=== PATIENT | male | born 1985 ===

== ENCOUNTER 2020-12-20 16:25 | Emergency (ER) | payer OTHER ==
[2020-12-20] MEDS ORDERED: MORPHINE SULFATE 4 MG/ML SYRINGE IM STA (16:59)
--- NOTE | 2020-12-20 17:50 | ED ---
Lower Extremity Injury HPI - General Chief Complaint: Extremity Injury, Lower Stated Complaint: Knee Pain Time Seen by Provider: 12/20/20 16:53 Source: patient, RN notes reviewed Mode of arrival: ambulatory Limitations: no limitations - History of Present Illness Initial Comments: Patient is a 35-year-old male that presents to the emergency department c omplaining of right knee pain. He notes that in November he squatted down to get something out of the bottom covered felt a pop in a searing pain in his right knee. He notes that he did follow-up with orthopedics who thinks that he may rupture his quadriceps tendon and have a torn meniscus. He notes that he just recently got an MRI done but is not following up with orthopedics until the . He was told by his primary care to come the emergency room for pain control. Patient noted that pain is constantly at like a 6-7 out of 10 but once a while gets a throbbing sharp pain that is a 10 out of 10. Patient denied any other issues or complaints at this time. She denied any chest pain short of breath headache nausea vomiting diarrhea constipation fever fatigue chills. - Related Data Previous Rx's Medication Instructions Recorded HYDROcodone/APAP 7.5-325MG [[place] 1 tab PO Q6HR PRN #20 tab 12/20/20 7.5-325] Allergies Allergy/AdvReac Type Severity Reaction Status Date / Time No Known Allergies Allergy Verified 12/20/20 16:50 Review of Systems ROS Statement: Those systems with pertinent positive or pertinent negative responses have been documented in the HPI. ROS Other: All systems not noted in ROS Statement are negative. Past Medical History Past Medical History: No Reported History History of Any Multi-Drug Resistant Organisms: None Reported Additional Past Surgical History / Comment(s): cyst removal Past Psychological History: No Psychological Hx Reported Smoking Status: Never smoker Past Alcohol Use History: Occasional, Rare Past Drug Use History: None Reported General Exam Limitations: no limitations General appearance: alert, in no apparent distress Head exam: Present: atraumatic, normocephalic, normal inspection Eye exam: Present: normal appearance, PERRL, EOMI. Absent: scleral icterus, conjunctival injection, periorbital swelling Neck exam: Present: normal inspection Respiratory exam: Present: normal lung sounds bilaterally. Absent: respiratory distress, wheezes, rales, rhonchi, stridor Cardiovascular Exam: Present: regular rate, normal rhythm, normal heart sounds. Absent: systolic murmur, diastolic murmur, rubs, gallop, clicks Right Knee exam: Present: tenderness (Medial aspect), swelling (Minimal), ecchymosis (The medial aspect). Absent: normal inspection, full ROM (Secondary to pain), abrasion, laceration, deformity, crepitus, dislocation, erythema Neurological exam: Present: alert, oriented X3 Psychiatric exam: Present: normal affect, normal mood Skin exam: Present: warm, dry, intact, normal color. Absent: rash Medical Decision Making - Medical Decision Making 35-year-old male complaining of right knee pain since November, did follow-up with orthopedics but pain is not controlled well. X-ray of the right knee, 4 mg of morphine ordered. X-ray negative for any acute fractures dislocations. Pain medication sent to pharmacy. Case discussed with Dr. Bose, patient can discharge home with follow-up to orthopedics as planned. - Radiology Data Radiology results: report reviewed, image reviewed X-ray of the right knee: No displaced fracture dislocation identified. Prepatellar soft tissue swelling. Disposition Clinical Impression: Right knee pain Disposition: HOME SELF-CARE Condition: Stable Instructions (If sedation given, give patient instructions): Knee Pain (ED) Additional Instructions: Please return to the Emergency Department if symptoms worsen or any other concerns. Follow-up with primary care in 1-2 days, possibly get referral for pain man agement. Remain nonweightbearing on that leg. Take pain medication as prescribed. Prescriptions: HYDROcodone/APAP 7.5-325MG [[place] 7.5-325] 1 tab PO Q6HR PRN #20 tab PRN Reason: Pain Is patient prescribed a controlled substance at d/c from ED?: Yes When asked, does pt state using other controlled substances?: No If prescribed controlled substance>3 days was MAPS reviewed?: No If opioid is for acute pain is fill amount 7 days or less?: Yes If Rx opioid, was Start Talking consent form obtained?: Yes Referrals: Renetta Blanco DO [Primary Care Provider] - 1-2 days Time of Disposition: 18:58
--- NOTE | 2020-12-20 18:56 | XR ---
EXAM: XR Right Knee, 1 or 2 Views CLINICAL HISTORY: ITS.REASON XR Reason: pain TECHNIQUE: Frontal and/or lateral views of the right knee. COMPARISON: None FINDINGS: Bones/joints: No displaced fracture or dislocation identified. Joint space is maintained. No bony lesion. Small knee joint effusion. Soft tissues: Prepatellar soft tissue swelling. IMPRESSION: 1. No displaced fracture or dislocation identified. 2. Prepatellar soft tissue swelling.
[2020-12-20 19:12] VITALS: BP 110/63; PULSE 65; RESP 16; TEMP 97.9
== END 2020-12-20 19:11 | disposition home or self-care (01) ==
LOC: EC 16:25
DX: S80.01XA Contusion of right knee, initial encounter (principal); X50.0XXA Overexertion from strenuous movement or load, initial encounter
CPT/HCPCS: 99283; 96372; 73560; J2270

== ENCOUNTER 2020-12-24 11:33 | Inpatient (IN) | payer OTHER ==
[2020-12-24] MEDS ORDERED: LIDOCAINE 1% INJ 10MG/ML (20 ML MDV) SQ ONE (12:48)
[2020-12-24] MEDS ORDERED: HYDROmorphone 1 MG/ML 1 ML SYRINGE IVP STA (12:49)
--- NOTE | 2020-12-24 12:52 | ED ---
General Adult HPI - General Chief complaint: Extremity Injury, Lower Stated complaint: knee pain Time Seen by Provider: 12/24/20 12:15 Source: patient, RN notes reviewed Mode of arrival: ambulatory Limitations: no limitations - History of Present Illness Initial comments: Patient is a pleasant 35-year-old male presenting to the emergency Department with complaints of right knee discomfort. A frank did injure his knee around 6 weeks ago. Over the past few days symptoms have worsened. Patient has had some increased swelling, warmth and redness. Patient did have a fever 3 days ago. Patient has been taking Lortab however has not noticed fever since that time. No upper respiratory symptoms. No cough or dyspnea. No abdominal pain. No urinary symptoms. Discomfort greatly increases with movement. - Related Data Previous Rx's Medication Instructions Recorded HYDROcodone/APAP 7.5-325MG [[place] 1 tab PO Q6HR PRN #20 tab 12/20/20 7.5-325] Allergies Allergy/AdvReac Type Severity Reaction Status Date / Time No Known Allergies Allergy Verified 12/24/20 13:29 Review of Systems ROS Statement: Those systems with pertinent positive or pertinent negative responses have been documented in the HPI. ROS Other: All systems not noted in ROS Statement are negative. Constitutional: Reports: as per HPI, fever Eyes: Denies: eye pain ENT: Denies: ear pain Respiratory: Denies: cough Cardiovascular: Denies: chest pain Endocrine: Denies: fatigue Gastrointestinal: Denies: abdominal pain Genitourinary: Denies: dysuria Musculoskeletal: Reports: as per HPI, arthralgia. Denies: back pain Skin: Reports: as per HPI Past Medical History Past Medical History: No Reported History History of Any Multi-Drug Resistant Organisms: None Reported Past Surgical History: Orthopedic Surgery Additional Past Surgical History / Comment(s): cyst removal Past Psychological History: No Psychological Hx Reported Smoking Status: Never smoker Past Alcohol Use History: Occasional, Rare Past Drug Use History: None Reported General Exam Limitations: no limitations General appearance: alert, in no apparent distress Head exam: Present: atraumatic Eye exam: Present: normal appearance Neck exam: Present: normal inspection Respiratory exam: Present: normal lung sounds bilaterally Cardiovascular Exam: Present: regular rate, normal rhythm Expanded Peripheral pulses: 2+: Dorsalis Pedis (R) GI/Abdominal exam: Present: soft. Absent: tenderness Extremities exam: Present: joint swelling (Moderate patellar effusion on the right. Severe tenderness. Trace erythema.). Absent: full ROM (Discomfort limiting range of motion) Neurological exam: Present: alert Psychiatric exam: Present: normal affect, normal mood Skin exam: Present: other (Mild erythema right knee) Course Vital Signs 12/24/20 12/24/20 12:09 13:47 Temperature 98.3 F 100.1 F H Pulse Rate 123 H Respiratory 18 Rate Blood Pressure 126/73 O2 Sat by Pulse 99 Oximetry Medical Decision Making - Medical Decision Making Patient reevaluated and updated. Case was discussed with Evelyne Bryant who did come evaluate patient and discuss case with Dr. Garrett. She will perform aspiration and started antibiotics. She does on patient to be admitted. Case was also discussed with Dr. Cristina, who will admit covering Dr. Draper. Patient does not meet sepsis criteria at this time. - Lab Data Result diagrams: 12/24/20 13:29 12/24/20 13:29 Lab Results 12/24/20 12/24/20 12/24/20 Range/Units 13:29 13:29 13:29 WBC 7.0 (3.8-10.6) k/uL RBC 5.17 (4.30-5.90) m/uL Hgb 16.6 (13.0-17.5) gm/dL Hct 48.2 (39.0-53.0) % MCV 93.1 (80.0-100.0) fL MCH 32.1 (25.0-35.0) pg MCHC 34.5 (31.0-37.0) g/dL RDW 13.1 (11.5-15.5) % Plt Count 350 (150-450) k/uL MPV 7.7 Neutrophils % 68 % Lymphocytes % 23 % Monocytes % 6 % Eosinophils % 1 % Basophils % 1 % Neutrophils # 4.7 (1.3-7.7) k/uL Lymphocytes # 1.6 (1.0-4.8) k/uL Monocytes # 0.4 (0-1.0) k/uL Eosinophils # 0.1 (0-0.7) k/uL Basophils # 0.0 (0-0.2) k/uL PT 10.1 (9.0-12.0) sec INR 0.9 (<1.2) APTT 24.7 (22.0-30.0) sec Sodium 138 (137-145) mmol/L Potassium 4.6 (3.5-5.1) mmol/L Chloride 104 (98-107) mmol/L Carbon Dioxide 24 (22-30) mmol/L Anion Gap 10 mmol/L BUN 16 (9-20) mg/dL Creatinine 0.89 (0.66-1.25) mg/dL Est GFR (CKD-EPI)AfAm >90 (>60 ml/min/1.73 sqM) Est GFR (CKD-EPI)NonAf >90 (>60 ml/min/1.73 sqM) Glucose 104 H (74-99) mg/dL Plasma Lactic Acid Dario (0.7-2.0) mmol/L Calcium 9.5 (8.4-10.2) mg/dL Total Bilirubin 0.5 (0.2-1.3) mg/dL AST 32 (17-59) U/L ALT 40 (4-49) U/L Alkaline Phosphatase 61 (38-126) U/L Total Protein 8.2 (6.3-8.2) g/dL Albumin 4.7 (3.5-5.0) g/dL 12/24/20 Range/Units 13:29 WBC (3.8-10.6) k/uL RBC (4.30-5.90) m/uL Hgb (13.0-17.5) gm/dL Hct (39.0-53.0) % MCV (80.0-100.0) fL MCH (25.0-35.0) pg MCHC (31.0-37.0) g/dL RDW (11.5-15.5) % Plt Count (150-450) k/uL MPV Neutrophils % % Lymphocytes % % Monocytes % % Eosinophils % % Basophils % % Neutrophils # (1.3-7.7) k/uL Lymphocytes # (1.0-4.8) k/uL Monocytes # (0-1.0) k/uL Eosinophils # (0-0.7) k/uL Basophils # (0-0.2) k/uL PT (9.0-12.0) sec INR (<1.2) APTT (22.0-30.0) sec Sodium (137-145) mmol/L Potassium (3.5-5.1) mmol/L Chloride (98-107) mmol/L Carbon Dioxide (22-30) mmol/L Anion Gap mmol/L BUN (9-20) mg/dL Creatinine (0.66-1.25) mg/dL Est GFR (CKD-EPI)AfAm (>60 ml/min/1.73 sqM) Est GFR (CKD-EPI)NonAf (>60 ml/min/1.73 sqM) Glucose (74-99) mg/dL Plasma Lactic Acid Dario 1.6 (0.7-2.0) mmol/L Calcium (8.4-10.2) mg/dL Total Bilirubin (0.2-1.3) mg/dL AST (17-59) U/L ALT (4-49) U/L Alkaline Phosphatase (38-126) U/L Total Protein (6.3-8.2) g/dL Albumin (3.5-5.0) g/dL - Radiology Data Radiology results: image reviewed (X-ray concerning for prepatellar bursitis) Disposition Clinical Impression: Other infective bursitis, unspecified knee Disposition: ADMITTED IP TO THIS HOSP Is patient prescribed a controlled substance at d/c from ED?: No Referrals: Renetta Blanco DO [Primary Care Provider] - 1-2 days Decision Time: 14:39
--- NOTE | 2020-12-24 13:20 | XR ---
EXAMINATION TYPE: XR knee complete RT DATE OF EXAM: 12/24/2020 CLINICAL HISTORY: Pain and swelling TECHNIQUE: Three views of the right knee are obtained. COMPARISON: Right knee x-ray from 4 days ago. FINDINGS: There is no acute fracture/dislocation evident in right knee. Mild narrowing patellofemora l and medial tibiofemoral compartments redemonstrated without significant spurring. Persistent and sl ightly more prominent subcutaneous edema anteriorly distal femoral level extending over the patella. IMPRESSION: As above. Correlate for prepatellar superficial bursitis.
[2020-12-24] MEDS: SODIUM CHLORIDE 0.9% 1,000 ML IV SCH ×2 (13:39→20:40)
[2020-12-24 13:45] LABS: Basophils % (A) 1 %; Eosinophils # (A) 0.1 k/uL (0-0.7); Eosinophils % (A) 1 %; HCT 48.2 % (39.0-53.0); HGB 16.6 gm/dL (13.0-17.5); Lymphocytes # (A) 1.6 k/uL (1.0-4.8); Lymphocytes % (A) 23 %; MCH 32.1 pg (25.0-35.0); MCHC 34.5 g/dL (31.0-37.0); MCV 93.1 fL (80.0-100.0); Mean Platelet Volume 7.7; Monocytes # (A) 0.4 k/uL (0-1.0); Monocytes % (A) 6 %; Neutrophils # (A) 4.7 k/uL (1.3-7.7); Neutrophils % (A) 68 %; Platelet Count 350 k/uL (150-450); RBC 5.17 m/uL (4.30-5.90); RDW 13.1 % (11.5-15.5)
[2020-12-24 13:57] LABS: ALT 40 U/L (4-49); AST 32 U/L (17-59); African American GFR (CKD) >90 (>60 ml/min/1.73 sqM); Albumin 4.7 g/dL (3.5-5.0); Alkaline Phosphatase 61 U/L (38-126); Anion Gap 10 mmol/L; Blood Urea Nitrogen 16 mg/dL (9-20); Calcium 9.5 mg/dL (8.4-10.2); Carbon Dioxide 24 mmol/L (22-30); Chloride 104 mmol/L (98-107); Glucose 104 mg/dL (74-99); INR 0.9 (<1.2); Non-African American GFR(CKD) >90 (>60 ml/min/1.73 sqM); Partial Thromboplastin Time 24.7 sec (22.0-30.0); Potassium 4.6 mmol/L (3.5-5.1); Prothrombin Time 10.1 sec (9.0-12.0); Sodium 138 mmol/L (137-145); Total Bilirubin 0.5 mg/dL (0.2-1.3); Total Protein 8.2 g/dL (6.3-8.2)
[2020-12-24] MEDS ORDERED: ACETAMINOPHEN TAB 325 MG TAB PO PRN (14:40)
[2020-12-24] MEDS ORDERED: NALOXONE 0.4 MG/ML 1 ML VIAL IV PRN (14:40)
--- NOTE | 2020-12-24 16:46 | P.CNOR ---
History of Present Illness - [facility] Consult date: 12/24/20 Consult reason: joint pain (Septic prepatellar bursitis right knee.) History of present illness: This is a 35-year-old male who has been followed in our office for right knee pain. He states that his pain began in November when he squatted down and felt a pop in the front of his knee. He ended up having an MRI which revealed a possibly sprained MCL. I do not have the report available to me at this time for further details. He states that he began having some redness and swelling to the anterior aspect of his knee over the past couple of weeks which is progressively gotten worse. He has been running a fever for the last couple of days. He states the fever has been over 101 at times. He presented to the emergency department and we are consulted for orthopedic evaluation. He is currently being admitted to internal medicine with orthopedics on consult. Past Medical History Past Medical History: No Reported History History of Any Multi-Drug Resistant Organisms: None Reported Past Surgical History: Orthopedic Surgery Additional Past Surgical History / Comment(s): cyst removal Past Psychological History: No Psychological Hx Reported Smoking Status: Never smoker Past Alcohol Use History: Occasional, Rare Past Drug Use History: None Reported Medications and Allergies Home Medications Medication Instructions Recorded Confirmed Type HYDROcodone/APAP 7.5-325MG [[place] 1 tab PO Q6HR PRN #20 tab 12/20/20 12/24/20 Rx 7.5-325] Allergies Allergy/AdvReac Type Severity Reaction Status Date / Time No Known Allergies Allergy Verified 12/24/20 13:29 Physical Examination This is a pleasant 35-year-old male in no acute distress. He is alert and oriented 3. Exam of the right lower extremity reveals erythema and swelling to the anterior aspect of the knee in the region of the prepatellar bursa. There is more of a diffuse swelling as opposed to a large area of fluctuance. There is no obvious joint effusion noted on exam. He has pain with motion of the knee. He can straight leg raise with pain. No Pain with palpation. He has full foot and ankle motion without difficulty. Neurovascular status to the lower extremity is intact. Results Right knee x-rays taken today reveal no acute bony abnormality. No fracture noted. No arthritic changes noted. - Labs Labs: Abnormal Lab Results - Last 24 Hours (Table) 12/24/20 Range/Units 13:29 Glucose 104 H (74-99) mg/dL H & H 12/24/20 Range/Units 13:29 Hgb 16.6 (13.0-17.5) gm/dL Hct 48.2 (39.0-53.0) % Coagulation 12/24/20 Range/Units 13:29 INR 0.9 (<1.2) Result Diagrams: 12/24/20 13:29 12/24/20 13:29 Assessment and Plan (1) Septic prepatellar bursitis of right knee Current Visit: Yes Status: Acute Code(s): M71.161 - OTHER INFECTIVE BURSITIS, RIGHT KNEE SNOMED Code(s): [id number] Plan: The clinical and x-ray findings are discussed with the patient. Aspiration of the bursa is attempted today. I obtained only a small amount of blood. The fluid is sent to the lab for culture and sensitivity. He is admitted to Dr. Blanco. He is admitted for IV antibiotics. I recommend moist heat to the knee as well. I will reevaluate in the morning. We have discussed the possibility of surgical debridement if symptoms do not improve with antibiotics. I would like him to have at least 24 hours of IV antibiotics prior to making a surgical determination. I will start him on vancomycin today with pharmacy to dose. I will also had moist heat.
[2020-12-24] MEDS ORDERED: VANCOMYCIN IV PER PHARMACY 1 EACH MISC MISCELLANE SCH (17:00)
[2020-12-24] MEDS: VANCOMYCIN 1,500 MG in SODIUM CHLORIDE 0.9% 250 ML IVPB SCH ×2 (18:35→23:10)
--- NOTE | 2020-12-24 18:44 | P.HPIM ---
History of Present Illness H&P Date: 12/24/20 Chief Complaint: Knee pain and swelling 35-year-old male presenting to the emergency Department with complaints of right knee discomfort. A frank did injure his knee around 6 weeks ago. Over the past few days symptoms have worsened. Patient has had some increased swelling, warmth and redness. Patient did have a fever 3 days ago. Patient has been taking Lortab however has not noticed fever since that time. No upper respiratory symptoms. No cough or dyspnea. No abdominal pain. No urinary symptoms. Discomfort greatly increases with movement. Review of Systems REVIEW OF SYSTEMS: CONSTITUTIONAL: No fever, no malaise, no fatigue. HEENT: No recent visual problems or hearing problems. Denied any sore throat. CARDIOVASCULAR: No chest pain, orthopnea, PND, no palpitations, no syncope. PULMONARY: No shortness of breath, no cough, no hemoptysis. GASTROINTESTINAL: No diarrhea, no nausea, no vomiting, no abdominal pain. NEUROLOGICAL: No headaches, no weakness, no numbness. HEMATOLOGICAL: Denies any bleeding or petechiae. GENITOURINARY: Denies any burning micturition, frequency, or urgency. MUSCULOSKELETAL/RHEUMATOLOGICAL: Denies any joint pain, swelling, or any muscle pain. ENDOCRINE: Denies any polyuria or polydipsia. The rest of the 14-point review of systems is negative. Past Medical History Past Medical History: No Reported History History of Any Multi-Drug Resistant Organisms: None Reported Past Surgical History: Orthopedic Surgery Additional Past Surgical History / Comment(s): cyst removal Past Psychological History: No Psychological Hx Reported Smoking Status: Never smoker Past Alcohol Use History: Occasional, Rare Past Drug Use History: None Reported Medications and Allergies Home Medications Medication Instructions Recorded Confirmed Type HYDROcodone/APAP 7.5-325MG [[place] 1 tab PO Q6HR PRN #20 tab 12/20/20 12/24/20 Rx 7.5-325] Allergies Allergy/AdvReac Type Severity Reaction Status Date / Time No Known Allergies Allergy Verified 12/24/20 13:29 Physical Exam Vitals: Vital Signs Temp Pulse Resp BP Pulse Ox 12/24/20 13:47 100.1 F H 12/24/20 12:09 98.3 F 123 H 18 126/73 99 Intake and Output 08/19/21 08/20/21 08/20/21 22:59 06:59 14:59 Other: Weight 81.647 kg General appearance: alert, in no apparent distress Head exam: Present: atraumatic Eye exam: Present: normal appearance Neck exam: Present: normal inspection Respiratory exam: Present: normal lung sounds bilaterally Cardiovascular Exam: Present: regular rate, normal rhythm Expanded Peripheral pulses: 2+: Dorsalis Pedis (R) GI/Abdominal exam: Present: soft. Absent: tenderness Extremities exam: Present: joint swelling (Moderate patellar effusion on the right. Severe tenderness. Trace erythema.). Absent: full ROM (Discomfort limiting range of motion) Neurological exam: Present: alert Psychiatric exam: Present: normal affect, normal mood Skin exam: Present: other (Mild erythema right knee) Results CBC & Chem 7: 12/24/20 13:29 12/24/20 13:29 Labs: Abnormal Lab Results - Last 24 Hours (Table) 12/24/20 Range/Units 13:29 Glucose 104 H (74-99) mg/dL Assessment and Plan Assessment: 1. Septic right knee prepatellar bursitis - Orthopedic surgery consulted from ED and recommending aspiration followed by starting broad-spectrum IV antibiotics, vancomycin with pharmacy dosing service - Fluid to be sent for culture and sensitivity - Patient is recommended moist heat to the knee - Patient will need surgical debridement if symptoms don't improve with IV antibiotics 2. Fever/tachycardia/lactic acidosis; SIRS; we will continue to monitor markers DVT prophylaxis; SCDs CODE STATUS; full code
[2020-12-24] MEDS: HYDROmorphone 1 MG/ML 1 ML SYRINGE IVP PRN (20:38)
[2020-12-25] MEDS: SODIUM CHLORIDE 0.9% 1,000 ML IV SCH ×3 (04:07→22:13)
[2020-12-25] MEDS: VANCOMYCIN 1,500 MG in SODIUM CHLORIDE 0.9% 250 ML IVPB SCH ×2 (07:40→16:37)
[2020-12-25] MEDS: HYDROmorphone 1 MG/ML 1 ML SYRINGE IVP PRN ×4 (07:41→19:46)
--- NOTE | 2020-12-25 10:17 | P.PN ---
Subjective Progress Note Date: 12/25/20 Principal diagnosis: Prepatellar bursitis right knee with cellulitis. This is a 35-year-old male who has been followed in our office for right knee pain. He states that his pain began in November when he squatted down and felt a pop in the front of his knee. He ended up having an MRI which revealed a possibly sprained MCL. I do not have the report available to me at this time fo r further details. He states that he began having some redness and swelling to the anterior aspect of his knee over the past couple of weeks which is progressively gotten worse. He has been running a fever for the last couple of days. He states the fever has been over 101 at times. He presented to the emergency department and we are consulted for orthopedic evaluation. He is currently being admitted to internal medicine with orthopedics on consult. 12/25/2020: The patient has some improvement in his pain and redness today. He is able to flex [id number] more. He has been afebrile since admission. He has no new complaints or concerns today. Gram stain and culture are pending. Objective - Vital Signs Vital signs: Vital Signs Temp 98.1 F 12/25/20 08:00 Pulse 75 12/25/20 08:00 Resp 16 12/25/20 08:00 BP 101/65 12/25/20 08:00 Pulse Ox 99 12/25/20 08:00 Intake & Output 12/24/20 12/25/20 12/25/20 18:59 06:59 18:59 Intake Total 1350 Balance 1350 Weight 81.647 kg 81.647 kg Intake: Intake, IV Titration 1110 Amount Sodium Chloride 0.9% 1, 860 000 ml @ 130 mls/hr IV . Q7H42M SUZANNA Rx#:[id number] Vancomycin 1,500 mg In 250 Sodium Chloride 0.9% 250 ml @ 125 mls/hr IVPB Q8HR SUZANNA Rx#:[id number] Oral 240 Other: Voiding Method Toilet Toilet # Voids 1 - Exam This is a pleasant 35-year-old male in no acute distress. He is alert and oriented 3. Exam of the right knee reveals that he has less erythema today slightly improved soft tissue swelling to the anterior aspect of the knee. He continues to have some tenderness and increased warmth to the knee. Improved range of motion today. He has active straight leg raise without difficulty. Neurovascular status to the lower extremity is intact. - Labs CBC & Chem 7: 12/24/20 13:29 12/24/20 13:29 Labs: Abnormal Lab Results - Last 24 Hours (Table) 12/24/20 Range/Units 13:29 Glucose 104 H (74-99) mg/dL Microbiology - Last 24 Hours (Table) 12/24/20 16:25 Gram Stain - Preliminary Aspirate Body Fluid Culture - Preliminary Assessment and Plan (1) Septic prepatellar bursitis of right knee Current Visit: Yes Status: Acute Code(s): M71.161 - OTHER INFECTIVE BURSITIS, RIGHT KNEE SNOMED Code(s): 0231502914338242 Plan: The clinical and x-ray findings are discussed with the patient. He is to continue on the IV antibiotics and moist heat to the right knee. We will continue to follow his progress. If he continues to improve we will hopefully avoid surgical intervention.
[2020-12-25 11:59] LABS: Basophils # (A) 0.04 X 10*3/uL (0.00-0.10); Basophils % (A) 0.6 %; Eosinophils # (A) 0.15 X 10*3/uL (0.04-0.35); Eosinophils % (A) 2.1 %; HCT 45.2 % (39.6-50.0); HGB 14.9 g/dL (13.0-17.0); Lymphocytes # (A) 1.67 X 10*3/uL (0.90-5.00); Lymphocytes % (A) 23.6 %; MCH 30.7 pg (27.0-32.0); MCV 93.2 fL (80.0-97.0); Mean Platelet Volume 9.9 fL (9.5-12.2); Monocytes # (A) 0.55 X 10*3/uL (0.20-1.00); Monocytes % (A) 7.8 %; Neutrophils # (A) 4.63 X 10*3/uL (1.80-7.70); Neutrophils % (A) 65.5 %; Platelet Count 333 X 10*3/uL (140-440); RBC 4.85 X 10*6/uL (4.40-5.60); RDW 12.6 % (11.5-14.5); WBC 7.07 X 10*3/uL (4.50-10.00)
[2020-12-25] MEDS: traMADol 50 MG TAB PO PRN (12:04)
--- NOTE | 2020-12-25 19:01 | P.PN ---
Subjective Progress Note Date: 12/25/20 Principal diagnosis: Prepatellar bursitis right knee Significant cellulitis right knee 35-year-old male who has been followed in our office for right knee pain. He states that his pain began in November when he squatted down and felt a pop in the front of his knee. He ended up having an MRI which revealed a possibly sprained MCL. I do not have the report available to me at this time for further details. He states that he began having some redness and swelling to the anterior aspect of his knee over the past couple of weeks which is progressively gotten worse. He has been running a fever for the last couple of days. He states the fever has been over 101 at times. He presented to the emergency department and we are consulted for orthopedic evaluation. Objective - Vital Signs Vital signs: Vital Signs Temp 98.1 F 12/25/20 08:00 Pulse 75 12/25/20 08:00 Resp 16 12/25/20 08:00 BP 101/65 12/25/20 08:00 Pulse Ox 99 12/25/20 08:00 Intake & Output 12/24/20 12/25/20 12/25/20 18:59 06:59 18:59 Intake Total 1350 Balance 1350 Weight 81.647 kg 81.647 kg Intake: Intake, IV Titration 1110 Amount Sodium Chloride 0.9% 1, 860 000 ml @ 130 mls/hr IV . Q7H42M SUZANNA Rx#:[id number] Vancomycin 1,500 mg In 250 Sodium Chloride 0.9% 250 ml @ 125 mls/hr IVPB Q8HR SUZANNA Rx#:[id number] Oral 240 Other: Voiding Method Toilet Toilet # Voids 1 - Exam - Constitutional General appearance: Present: average body habitus, cooperative, no acute distress - EENT Eyes: Present: anicteric sclerae, EOMI, PERRLA, normal appearance ENT: Present: hearing grossly normal, normal oropharynx Ears: bilateral: normal - Neck Neck: Present: normal ROM. Absent: lymphadenopathy, rigidity, thyromegaly Carotids: negative: bruit present Thyroid: bilateral: normal size, negative: enlarged, nodule - Respiratory Respiratory: bilateral: CTA, negative: rales, rhonchi, wheezing - Cardiovascular Rhythm: regular Heart sounds: normal: S1, S2 Abnormal Heart Sounds: Absent: systolic murmur, diastolic murmur - Gastrointestinal General gastrointestinal: Present: normal bowel sounds, soft. Absent: distended, organomegaly, tenderness - Genitourinary Genitourinary Comment(s): deferred - Integumentary Integumentary: Present: normal turgor. Absent: jaundiced, rash, ulcer - Neurologic Neurologic: Present: CNII-XII intact. Absent: focal deficits - Musculoskeletal Musculoskeletal: Present: gait normal, strength equal bilaterally - Psychiatric Psychiatric: Present: A&O x's 3, appropriate affect, intact judgment & insight - Labs CBC & Chem 7: 12/25/20 08:37 12/24/20 13:29 Labs: Abnormal Lab Results - Last 24 Hours (Table) 12/24/20 Range/Units 13:29 Glucose 104 H (74-99) mg/dL Microbiology - Last 24 Hours (Table) 12/24/20 16:25 Gram Stain - Preliminary Aspirate Body Fluid Culture - Preliminary Assessment and Plan Assessment: 1. Septic right knee prepatellar bursitis - Orthopedic surgery consulted from ED and recommending aspiration followed by starting broad-spectrum IV antibiotics, vancomycin with pharmacy dosing service - Fluid to be sent for culture and sensitivity - Patient is recommended moist heat to the knee - Patient will need surgical debridement if symptoms don't improve with IV antibiotics 2. Fever/tachycardia/lactic acidosis; SIRS; we will continue to monitor markers DVT prophylaxis; SCDs CODE STATUS; full code
[2020-12-25] MEDS ORDERED: ONDANSETRON 4 MG/2 ML VIAL IVP PRN (21:40)
[2020-12-26] MEDS: VANCOMYCIN 1,500 MG in SODIUM CHLORIDE 0.9% 250 ML IVPB SCH ×2 (01:53→07:42)
[2020-12-26] MEDS: SODIUM CHLORIDE 0.9% 1,000 ML IV SCH ×3 (01:55→22:22)
[2020-12-26] MEDS ORDERED: VANCOMYCIN TROUGH DUE 1 EACH MISC MISCELLANE ONE (07:00)
[2020-12-26 07:33] LABS: African American GFR (CKD) >90 (>60 ml/min/1.73 sqM); Non-African American GFR(CKD) >90 (>60 ml/min/1.73 sqM)
[2020-12-26] MEDS: HYDROmorphone 1 MG/ML 1 ML SYRINGE IVP PRN ×4 (07:41→22:12)
[2020-12-26 11:00] LABS: Basophils # (A) 0.02 X 10*3/uL (0.00-0.10); Basophils % (A) 0.3 %; Eosinophils % (A) 1.3 %; HCT 44.6 % (39.6-50.0); HGB 14.6 g/dL (13.0-17.0); Lymphocytes % (A) 25.7 %; MCH 30.8 pg (27.0-32.0); MCHC 32.7 g/dL (32.0-37.0); MCV 94.1 fL (80.0-97.0); Mean Platelet Volume 9.8 fL (9.5-12.2); Monocytes # (A) 0.63 X 10*3/uL (0.20-1.00); Monocytes % (A) 8.1 %; Neutrophils # (A) 4.99 X 10*3/uL (1.80-7.70); Neutrophils % (A) 64.2 %; Platelet Count 325 X 10*3/uL (140-440); RBC 4.74 X 10*6/uL (4.40-5.60); RDW 12.6 % (11.5-14.5); WBC 7.77 X 10*3/uL (4.50-10.00)
[2020-12-26] MEDS ORDERED: LIDOCAINE 1% INJ 10MG/ML (20 ML MDV) ONE (17:25)
[2020-12-26] MEDS ORDERED: PROPOFOL 10 MG/ML 20 ML VIAL IV ONE (17:25)
[2020-12-26] MEDS ORDERED: HYDROmorphone (PF) 1 MG/ML ONE (17:25)
[2020-12-26] MEDS ORDERED: MIDAZOLAM 2 MG/2 ML VIAL ONE (17:25)
[2020-12-26] MEDS ORDERED: ONDANSETRON 4 MG/2 ML VIAL ONE (17:25)
[2020-12-26] MEDS ORDERED: LACTATED RINGERS 1,000 ML IV ONE (17:30)
[2020-12-26] MEDS ORDERED: AMPICILLIN-SULBACTAM 3 GM in SODIUM CHLORIDE 0.9% 100 ML IVPB SCH (18:00)
--- NOTE | 2020-12-26 18:02 | P.PN ---
Subjective Progress Note Date: 12/26/20 Principal diagnosis: Prepatellar bursitis right knee Significant cellulitis right knee 35-year-old male who has been followed in our office for right knee pain. He states that his pain began in November when he squatted down and felt a pop in the front of his knee. He ended up having an MRI which revealed a possibly sprained MCL. I do not have the report available to me at this time for further details. He states that he began having some redness and swelling to the anterior aspect of his knee over the past couple of weeks which is progressively gotten worse. He has been running a fever for the last couple of days. He states the fever has been over 101 at times. He presented to the emergency department and we are consulted for orthopedic evaluation. 12/26/2020 Patient is seen and evaluated in room at bedside; continues to report discomfort and swelling of right knee Vital signs are reviewed; temperature 98.9, pulse 86, respirations 16 and blood pressure 114/68 with O2 saturation 100% on room air Labs review stable white blood count of 7.7; cultures are negative so far Patient has been evaluated by orthopedic surgery; plan is possible incision and drainage of right knee in no more; patient is currently on IV vancomycin; recommended to be changed to IV Unasyn; further recommendations to follow Objective - Vital Signs Vital signs: Vital Signs Temp 98.2 F 12/26/20 08:00 Pulse 85 12/26/20 08:00 Resp 16 12/26/20 08:00 BP 118/78 12/26/20 08:00 Pulse Ox 100 12/26/20 08:00 Intake & Output 12/25/20 12/26/20 12/26/20 18:59 06:59 18:59 Intake Total 1675 Balance 1675 Intake: Intake, IV Titration 1435 Amount Sodium Chloride 0.9% 1, 1310 000 ml @ 130 mls/hr IV . Q7H42M SUZANNA Rx#:[id number] Vancomycin 1,500 mg In 125 Sodium Chloride 0.9% 250 ml @ 125 mls/hr IVPB Q8HR SUZANNA Rx#:[id number] Oral 240 Other: Voiding Method Toilet Toilet Toilet # Voids 2 - Exam - Constitutional General appearance: Present: average body habitus, cooperative, no acute distress - EENT Eyes: Present: anicteric sclerae, EOMI, PERRLA, normal appearance ENT: Present: hearing grossly normal, normal oropharynx Ears: bilateral: normal - Neck Neck: Present: normal ROM. Absent: lymphadenopathy, rigidity, thyromegaly Carotids: negative: bruit present Thyroid: bilateral: normal size, negative: enlarged, nodule - Respiratory Respiratory: bilateral: CTA, negative: rales, rhonchi, wheezing - Cardiovascular Rhythm: regular Heart sounds: normal: S1, S2 Abnormal Heart Sounds: Absent: systolic murmur, diastolic murmur - Gastrointestinal General gastrointestinal: Present: normal bowel sounds, soft. Absent: d istended, organomegaly, tenderness - Genitourinary Genitourinary Comment(s): deferred - Integumentary Integumentary: Present: normal turgor. Absent: jaundiced, rash, ulcer - Neurologic Neurologic: Present: CNII-XII intact. Absent: focal deficits - Musculoskeletal Musculoskeletal: Present: gait normal, strength equal bilaterally - Psychiatric Psychiatric: Present: A&O x's 3, appropriate affect, intact judgment & insight - Labs CBC & Chem 7: 12/26/20 07:02 12/26/20 07:02 Labs: Microbiology - Last 24 Hours (Table) 12/24/20 18:21 Blood Culture - Preliminary Blood No Growth after 24 hours 12/24/20 16:25 Gram Stain - Preliminary Aspirate Body Fluid Culture - Preliminary 12/24/20 13:29 Blood Culture - Preliminary Blood No Growth after 24 hours Assessment and Plan Assessment: 1. Septic right knee prepatellar bursitis - Orthopedic surgery consulted from ED and recommending aspiration followed by starting broad-spectrum IV antibiotics, vancomycin with pharmacy dosing service - Fluid to be sent for culture and sensitivity - Patient is recommended moist heat to the knee - Patient will need surgical debridement if symptoms don't improve with IV antibiotics 2. Fever/tachycardia/lactic acidosis; SIRS; we will continue to monitor markers DVT prophylaxis; SCDs CODE STATUS; full code
[2020-12-26] MEDS: fentaNYL (PF) 50 MCG/ML 2 ML AMP IVP ONE ×2 (19:10→19:13)
--- NOTE | 2020-12-26 19:15 | P.OP ---
Date of Procedure: 12/26/20 Procedure(s) Performed: PREOPERATIVE DIAGNOSES: 1. Right knee prepatellar bursal abscess POSTOPERATIVE DIAGNOSES: 1. Right knee prepatellar organizing hematoma, without evidence of infection 2. Muscular strain, vastus medialis 3. No evidence of intra-articular process PROCEDURES PERFORMED: 1. Right knee prepatellar bursal open excision of organizing hematoma 2. Closure of wound over 10-Turkmen Hemovac drain ANESTHESIA: Gen. HEEL MOLDER: None COMPLICATIONS: None ESTIMATED BLOOD LOSS: 100 mL DISPOSITION: To post-anesthesia care unit INDICATIONS: Mendoza is a 35-year-old male with a history of pain involving the right knee. He has recently run a fever of approximately 101, along with redness warmth and swelling of the prepatellar bursa. Attempted aspiration of the bursa yielded no significant fluid beside some blood. Cultures thus far have been negative. He has been dealing with this pain for approximately 2 months and an MRI had shown no evidence of intra-articular process and a mild vastus medialis strain and MCL sprain. In the hospital, he has been treated so far with vancomycin and Unasyn. His labs have been basically normal, with a normal C-reactive protein and sed rate and white blood cell count. I suspect that he has infected hematoma present. Consent has been obtained after discussion of the risks of incision and drainage of this abscess as being inclusive of, but not limited to: Bleeding, further infection, scarring, discomfort, blood vessel and/or nerve damage, compartment syndrome, failure to relieve symptoms, persistence or recurrence and/or worsening of symptoms or problems, need for further surgery, blood clot, pulmonary embolism, , anesthesia risks, and other risks. PROCEDURE: After appropriate consent was obtained, the patient was taken to the operating room placed in the supine position. Anesthesia was initiated, and a fter confirmation of adequate anesthesia, the patient was carefully positioned. Care was taken to make sure that all pressure points were adequately padded. Prepping and draping were completed in the usual aseptic fashion using ChloraPrep. Timeout was called, confirming patient identity, side, and procedure. Incision approximately 5 inches in size was created longitudinally along the anterior aspect of the knee. It was deepened down into the bursa where there was very minimal old free blood present. No evidence of pus was noted. Crusty material was noted within the prepatellar bursa consistent with organizing hematoma. This material was excised sharply using a knife and sent for pathology analysis in formalin and fresh. 2 cultures were also taken in the bursa. Subsequently, thorough irrigation using pulsatile lavage was performed for 1 L. 10 mL of saline marked with methylene blue was injected into the knee joint and there was no evidence of penetration into the bursa. The quadriceps tendon was evaluated and found to be completely intact. However in this patient the vastus medialis was large structure with a large attachment to the medial side of the quad tendon and the patella. The vastus medialis was actually quite a bit larger than the water such tendon itself in width. There did appear to be some swelling of this muscle, consistent with a low to medium- grade strain injury. Much of the organizing hematoma was directly over the vastus medialis and this area was extremely vascular in this patient. This presumably explains the formation of the prepatellar hematoma. Considering the lack of infectious signs within the wound, I felt that closure of this wound was acceptable. Therefore the wound was thoroughly irrigated further with 2 more liters of pulsatile normal saline, and hemostasis was obtained meticulously using electrocautery. There was a fair amount of bleeding from the soft tissues in this patient therefore Surgicel powder was used for ad ditional hemostasis along with pressure. Even after this meticulous hemostasis, there was still bleeding present and therefore I felt that placement of a Hemovac drain would be prudent. The Hemovac drain was placed within the bursa and carried out laterally through the skin. Drain stitch was placed using #2 nylon. Closure of the subcu tissues was performed using 2-0 Vicryl suture in interrupte d fashion followed by 3-0 strata fix suture in running subcuticular fashion for the skin. Cyanoacrylate topical dressing was applied and Opteform dressing was applied once the glue had dried. A well-padded dressing was applied using Foster roll, ABDs, and Delano wrap. Patient tolerated the procedure well and taken to recovery room in stable condition. Blood loss was estimated to be 100 mL. Sponge counts were correct.
[2020-12-26] MEDS ORDERED: HYDROmorphone 0.5 MG/0.5 ML SYRINGE IVP ONE ×2 (19:25→19:33)
[2020-12-26] MEDS ORDERED: diphenhydrAMINE 50 MG/ML 1 ML VIAL ONE (19:49)
[2020-12-26] MEDS ORDERED: diphenhydrAMINE 50 MG/ML 1 ML VIAL IVP ONE (19:51)
[2020-12-26] MEDS ORDERED: SODIUM CHLORIDE 0.9% 1,000 ML IV ONE (19:59)
[2020-12-26] MEDS: AMPICILLIN-SULBACTAM 3 GM in SODIUM CHLORIDE 0.9% 100 ML IVPB SCH (23:47)
[2020-12-27] MEDS: HYDROmorphone 1 MG/ML 1 ML SYRINGE IVP PRN ×3 (01:35→08:46)
[2020-12-27] MEDS: AMPICILLIN-SULBACTAM 3 GM in SODIUM CHLORIDE 0.9% 100 ML IVPB SCH ×3 (04:50→10:48)
[2020-12-27] MEDS: SODIUM CHLORIDE 0.9% 1,000 ML IV SCH ×3 (04:59→16:40)
[2020-12-27] MEDS: traMADol 50 MG TAB PO PRN ×2 (10:45→21:34)
--- NOTE | 2020-12-27 11:14 | P.PN ---
Subjective Progress Note Date: 12/27/20 Principal diagnosis: Prepatellar bursitis right knee with cellulitis. postop I&D right knee This is a 35-year-old male who has been followed in our office for right knee pain. He states that his pain began in November when he squatted down and felt a pop in the front of his knee. He ended up having an MRI which revealed a possibly sprained MCL. I do not have the report available to me at this time for further details. He states that he began having some redness and swelling t o the anterior aspect of his knee over the past couple of weeks which is progressively gotten worse. He has been running a fever for the last couple of days. He states the fever has been over 101 at times. He presented to the emergency department and we are consulted for orthopedic evaluation. He is currently being admitted to internal medicine with orthopedics on consult. 12/25/2020: The patient has some improvement in his pain and redness today. He is able to flex [id number] more. He has been afebrile since admission. He has no new complaints or concerns today. Gram stain and culture are pending. 12/26/2020: The patient states that he continues to have pain and swelling to the anterior aspect of the knee. He has been afebrile. Blood cultures show no growth at 24 hours. Culture from the knee aspirate shows no organisms on Gram stain and culture is pending. 12/27/2020: The patient is postop day #1, status post I&D of the right knee. The patient is having significant pain. He has been afebrile. Operative Cultures are pending. Cultures from 12/24/2020 are showing no growth and no organisms seen on Gram stain. Objective - Vital Signs Vital signs: Vital Signs Temp 98.3 F 12/27/20 08:00 Pulse 102 H 12/27/20 08:00 Resp 19 12/27/20 08:00 BP 114/69 12/27/20 08:00 Pulse Ox 97 12/27/20 08:00 Intake & Output 12/26/20 12/27/20 12/27/20 18:59 06:59 18:59 Intake Total 700 300 Output Total 100 Balance 600 300 Intake: IV 700 300 Output: Estimated Blood Loss 100 Other: Voiding Method Toilet Toilet Toilet # Voids 3 1 - Exam This is a pleasant 35-year-old male in no acute distress. He is alert and oriented 3. dressing is removed today. Drain is left intact. He continues to have some swelling to the knee. He is lacking about 10 of full extension. He has full foot and ankle motion without difficulty or pain. Neurovascular status to the right lower extremity is intact. - Labs CBC & Chem 7: 12/26/20 07:02 12/26/20 07:02 Labs: Microbiology - Last 24 Hours (Table) 12/26/20 18:15 Gram Stain - Preliminary Knee - Right Wound Culture - Preliminary 12/26/20 18:15 Gram Stain - Preliminary Knee - Right Wound Culture - Preliminary 12/26/20 18:15 Gram Stain - Preliminary Knee - Right Tissue Culture - Preliminary 12/26/20 18:15 Acid Fast Bacilli Culture - Preliminary Knee - Right 12/26/20 18:15 Anaerobic Culture - Preliminary Knee - Right 12/26/20 18:15 Fungal Culture - Preliminary Knee - Right 12/26/20 18:15 Fungal Culture - Preliminary Knee - Right 12/26/20 18:15 Fungal Culture - Preliminary Knee - Right 12/26/20 18:15 Anaerobic Culture - Preliminary Knee - Right 12/26/20 18:15 Anaerobic Culture - Preliminary Knee - Right 12/24/20 18:21 Blood Culture - Preliminary Blood No Growth after 48 hours 12/24/20 16:25 Gram Stain - Preliminary Aspirate Body Fluid Culture - Preliminary 12/24/20 13:29 Blood Culture - Preliminary Blood No Growth after 48 hours Assessment and Plan (1) Septic prepatellar bursitis of right knee Current Visit: Yes Status: Acute Code(s): M71.161 - OTHER INFECTIVE BURSITIS, RIGHT KNEE SNOMED Code(s): 7503823404480671 Plan: The clinical and x-ray findings are discussed with the patient. I have discontinued his IV antibiotics today. I've ordered Augmentin twice a day. I will leave his drain in place today. Plan possible discharge to home tomorrow if doing well.
[2020-12-27] MEDS: AMOXIC-POT CLAV 875-125MG 1 EACH TAB PO SCH ×2 (11:55→21:31)
--- NOTE | 2020-12-27 16:25 | P.DS ---
Providers Date of admission: 12/24/20 14:42 Expected date of discharge: 12/27/20 Attending physician: Mendoza Blanco MD Consults: 12/24/20 14:41 Consult Physician Urgent Consulting Provider: Robert Little Consult Reason/Comments: Infectious bursitis Do you want consulting provider notified?: Already Contacted Primary care physician: Renetta Blanco [facility] Course: Final diagnoses: Septic prepatellar bursitis right knee Hospital course: This is a 35-year-old gentleman admitted with right knee pain with swelling, prior MRI suggestive of possible sprained MCL. X-rays reported no acute bony abnormality with no fracture or arthritic changes. Status post I&D of right knee prepatellar organizing hematoma without evidence of infection reported, muscular strain vastus medialis with no evidence of intra-articular process. Cultures pending. Prior cultures of reporting no growth and no organisms on Gram stain. Afebrile. Currently on IV antibiotics. Renal function stable. Denies chest pain, palpitations or shortness of breath. Vital Signs Temp 98.3 F 12/27/20 08:00 Pulse 102 H 12/27/20 08:00 Resp 19 12/27/20 08:00 BP 114/69 12/27/20 08:00 Pulse Ox 97 12/27/20 08:00 PHYSICAL EXAM: VITAL SIGNS: As above, reviewed GENERAL: Sitting up in bed, no acute distress HEENT: Conjunctivae normal. eyes normal. NECK: No JVD. No thyroid enlargement. CARDIOVASCULAR: S1, S2 regular. No murmur RESPIRATION: Breath sounds diminished in the bases. No rhonchi or crackles. ABDOMEN: Soft, nontender . No guarding. no masses palpable. Positive Bowel sounds. LEGS: Right knee edema, dressing clean dry and intact, tender, no calf pain. Drain present. PSYCHIATRY: Alert and oriented X3, mood and affect normal. NERVOUS SYSTEM: Cranial N 2-12 grossly normal. Moves all extremities.No focal deficits. Strength and sensation grossly intact.. Skin: Warm and dry, no rash Microbiology 12/24/20 13:29 Blood Blood Culture - Preliminary No Growth after 72 hours 12/26/20 18:15 Knee - Right Gram Stain - Preliminary 12/26/20 18:15 Knee - Right Wound Culture - Preliminary 12/26/20 18:15 Knee - Right Gram Stain - Preliminary 12/26/20 18:15 Knee - Right Wound Culture - Preliminary 12/26/20 18:15 Knee - Right Gram Stain - Preliminary 12/26/20 18:15 Knee - Right Tissue Culture - Preliminary 12/26/20 18:15 Knee - Right Acid Fast Bacilli Culture - Preliminary 12/26/20 18:15 Knee - Right Anaerobic Culture - Preliminary 12/26/20 18:15 Knee - Right Fungal Culture - Preliminary 12/26/20 18:15 Knee - Right Fungal Culture - Preliminary 12/26/20 18:15 Knee - Right Fungal Culture - Preliminary 12/26/20 18:15 Knee - Right Anaerobic Culture - Preliminary 12/26/20 18:15 Knee - Right Anaerobic Culture - Preliminary 12/24/20 18:21 Blood Blood Culture - Preliminary No Growth after 48 hours 12/24/20 16:25 Aspirate Gram Stain - Preliminary 12/24/20 16:25 Aspirate Body Fluid Culture - Preliminary IV antibiotics converted to oral. Cultures finalizing. Discharge planning in progress pending final DC recommendations and clearance from orthopedic surgery. The impression and plan of care has been dictated as directed. : I performed a history and examination of this patient, discussed the same with the dictator. I agree with the dictator's note ,documented as a scribe. Any additional findings or plans will be noted. Patient Condition at Discharge: Stable Plan - Discharge Summary Discharge Rx Participant: Yes New Discharge Prescriptions: New Acetaminophen Tab [Tylenol] 650 mg PO Q6HR PRN tab PRN Reason: Mild Pain Or Fever > 100.5 Amoxicillin/Potassium Clav [Augmentin 875-125 Tablet] 1 tab PO BID 1 Days #28 tab HYDROcodone/APAP 7.5-325MG [Ostrander 7.5-325] 1 - 2 tab PO Q6HR PRN #32 tab PRN Reason: Pain No Action HYDROcodone/APAP 7.5-325MG [Ostrander 7.5-325] 1 tab PO Q6HR PRN #20 tab PRN Reason: Pain Discharge Medication List HYDROcodone/APAP 7.5-325MG [Ostrander 7.5-325] 1 tab PO Q6HR PRN #20 tab 12/20/20 [Rx] Acetaminophen Tab [Tylenol] 650 mg PO Q6HR PRN tab 12/27/20 [Rx] Amoxicillin/Potassium Clav [Augmentin 875-125 Tablet] 1 tab PO BID 1 Days #28 tab 12/27/20 [Rx] HYDROcodone/APAP 7.5-325MG [Ostrander 7.5-325] 1 - 2 tab PO Q6HR PRN #32 tab 12/27/20 [Rx] Follow up Appointment(s)/Referral(s): Renetta Balnco DO [Primary Care Provider] - 12/29/20 12:30 pm (APPOINTMENT AT [facility] [address] [facility] [address] ) Activity/Diet/Wound Care/Special Instructions: Pending right knee cultures finalizing, final DC recommendations and clearance from orthopedic surgery
[2020-12-27] MEDS: HYDROcodone/APAP 7.5-325MG 1 EACH TAB PO PRN (17:52)
[2020-12-28] MEDS: SODIUM CHLORIDE 0.9% 1,000 ML IV SCH ×2 (03:08→08:44)
[2020-12-28] MEDS: HYDROcodone/APAP 7.5-325MG 1 EACH TAB PO PRN ×2 (04:39→10:39)
[2020-12-28 08:20] VITALS: BP 136/75; PULSE 88; RESP 18; TEMP 98.5
[2020-12-28] MEDS: AMOXIC-POT CLAV 875-125MG 1 EACH TAB PO SCH (08:43)
--- NOTE | 2020-12-28 09:32 | P.PN ---
Subjective Progress Note Date: 12/28/20 This is a 35-year-old male who is status post I&D of the right knee. This is postoperative day #2 and patient is seen and evaluated at bedside today. Patient states that he is doing well this morning and he denies any new complaints today. Objective - Vital Signs Vital signs: Vital Signs Temp 98.5 F 12/28/20 08:00 Pulse 88 12/28/20 08:00 Resp 18 12/28/20 08:00 BP 136/75 12/28/20 08:00 Pulse Ox 100 12/28/20 08:00 Intake & Output 12/27/20 12/28/20 12/28/20 18:59 06:59 18:59 Output Total 60 Balance -60 Output: Drainage 60 Right Knee 60 Other: Voiding Method Toilet Toilet # Voids 0 0 # Bowel Movements 0 0 - Exam On exam dressing is clean, dry and intact. Surgical drain is removed a bedside today. There is mild swelling of the right knee. There is no erythema. Calf is soft and nontender to palpation. Patient has full range of motion of the right foot and ankle. Neurovascular status and circulatory status are intact. - Labs CBC & Chem 7: 12/26/20 07:02 12/26/20 07:02 Labs: Microbiology - Last 24 Hours (Table) 12/26/20 18:15 Gram Stain - Preliminary Knee - Right Wound Culture - Preliminary 12/26/20 18:15 Gram Stain - Preliminary Knee - Right Wound Culture - Preliminary 12/26/20 18:15 Gram Stain - Preliminary Knee - Right Tissue Culture - Preliminary 12/24/20 18:21 Blood Culture - Preliminary Blood No Growth after 72 hours 12/24/20 16:25 Gram Stain - Preliminary Aspirate Body Fluid Culture - Preliminary 12/26/20 18:15 Acid Fast Bacilli Smear - Final Knee - Right Acid Fast Bacilli Culture - Preliminary 12/24/20 13:29 Blood Culture - Preliminary Blood No Growth after 72 hours Assessment and Plan (1) Other infective bursitis, unspecified knee Current Visit: Yes Status: Acute Code(s): M71.169 - OTHER INFECTIVE BURSITIS, UNSPECIFIED KNEE SNOMED Code(s): 359328940 (2) Septic prepatellar bursitis of right knee Current Visit: Yes Status: Acute Code(s): M71.161 - OTHER INFECTIVE BURSITIS, RIGHT KNEE SNOMED Code(s): 5921059324896915 (3) Right knee pain Current Visit: No Status: Acute Code(s): M25.561 - PAIN IN RIGHT KNEE SNOMED Code(s): 6428034304 Plan: 1. Cultures are pending. Blood cultures are negative after 72 hours. 2. Planning for discharge home later today. Patient will be sent home on oral Augmentin. Patient is to follow-up with Dr. Little on 12/31/2020.
== END 2020-12-28 10:50 | disposition home or self-care (01) | DRG 501 ==
LOC: EC 11:33 → 4SSUR 14:42
PROVIDERS: ADMIT Family Medicine; ATTEND Family Medicine
PROC: 0MCN0ZZ Extirpation of Matter from Right Knee Bursa and Ligament, Open Approach (ICD-10-PCS; principal; 2020-12-26 17:30)
DX: M79.81 Nontraumatic hematoma of soft tissue (principal); E87.2 Acidosis; S76.111A Strain of right quadriceps muscle, fascia and tendon, initial encounter
CPT/HCPCS: 36415; 80053; 80202; 82565; 83605; 85025; 85610; 85652; 85730; 86140; 87040; 87070; 87075; 87102; 87116; 87205; 87206; 87635; 88305; 96365; 96375; 99284

== ENCOUNTER 2021-02-03 09:27 | Emergency (ER) | payer OTHER ==
[2021-02-03 09:38] LABS: Glucose,Whole Blood 100 mg/dL (75-99)
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
--- NOTE | 2021-02-03 09:55 | XR ---
EXAMINATION TYPE: XR pelvis AP view DATE OF EXAM: 02/03/2021 CLINICAL HISTORY: pain TECHNIQUE: Single view the pelvis is submitted. FINDINGS: No evidence for fracture, dislocation or bony lesion. Joint spaces are well-preserved. S I joints appear symmetric. IMPRESSION: 1. No acute fracture or dislocation seen. ICD 10 NO FRACTURE, INITIAL EVALUATION
[2021-02-03 09:56] LABS: Basophils % (A) 1 %; Eosinophils # (A) 0.1 k/uL (0-0.7); Eosinophils % (A) 1 %; HCT 44.2 % (39.0-53.0); HGB 14.9 gm/dL (13.0-17.5); Lymphocytes # (A) 2.1 k/uL (1.0-4.8); Lymphocytes % (A) 34 %; MCH 31.3 pg (25.0-35.0); MCHC 33.6 g/dL (31.0-37.0); MCV 93.2 fL (80.0-100.0); Mean Platelet Volume 7.5; Monocytes # (A) 0.4 k/uL (0-1.0); Monocytes % (A) 6 %; Neutrophils # (A) 3.5 k/uL (1.3-7.7); Neutrophils % (A) 55 %; Platelet Count 292 k/uL (150-450); RBC 4.75 m/uL (4.30-5.90); RDW 12.3 % (11.5-15.5); WBC 6.3 k/uL (3.8-10.6)
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
[2021-02-03 10:05] LABS: ALT 44 U/L (4-49); AST 35 U/L (17-59); African American GFR (CKD) >90 (>60 ml/min/1.73 sqM); Albumin 4.1 g/dL (3.5-5.0); Alcohol <10 mg/dL; Alkaline Phosphatase 58 U/L (38-126); Anion Gap 12 mmol/L; Blood Urea Nitrogen 12 mg/dL (9-20); Calcium 9.1 mg/dL (8.4-10.2); Carbon Dioxide 19 mmol/L (22-30); Chloride 109 mmol/L (98-107); Glucose 110 mg/dL (74-99); Non-African American GFR(CKD) >90 (>60 ml/min/1.73 sqM); Sodium 140 mmol/L (137-145); Total Bilirubin 0.7 mg/dL (0.2-1.3); Total Protein 7.4 g/dL (6.3-8.2)
[2021-02-03 10:06] LABS: Potassium 4.3 mmol/L (3.5-5.1)
[2021-02-03 10:13] LABS: Prothrombin Time 10.5 sec (9.0-12.0)
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
[2021-02-03] MEDS ORDERED: KETOROLAC 15 MG/ML 1 ML VIAL IVP STA (10:28)
[2021-02-03 10:32] LABS: Partial Thromboplastin Time 21.7 sec (22.0-30.0)
[2021-02-03] MEDS ORDERED: HYDROmorphone 0.5 MG/0.5 ML SYRINGE IVP STA (10:33)
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
[2021-02-03 12:21] VITALS: BP 116/72; PULSE 90; RESP 16; TEMP 97.8
== END 2021-02-03 12:08 | disposition home or self-care (01) ==
LOC: EC 09:27
DX: S06.0X9A Concussion with loss of consciousness of unspecified duration, initial encounter (principal); S40.012A Contusion of left shoulder, initial encounter; V89.2XXA Person injured in unspecified motor-vehicle accident, traffic, initial encounter; Y92.410 Unspecified street and highway as the place of occurrence of the external cause
CPT/HCPCS: 96374; 96375; 36415; 93005; 80053; 84484; 85025; 85610; 85730; 80320; 72170; 73030; 73562; 71045; 72125; 70450; 71260; 74177; 99284; J1885; J1170; Q9967

== ENCOUNTER → 2021-04-02 | Outpatient (CLI) | payer OTHER ==
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
== END | disposition home or self-care (01) ==
LOC: RADMRIMAIN 12:01
PROVIDERS: ATTEND Family Medicine
DX: F07.81 Postconcussional syndrome (principal); V89.2XXA Person injured in unspecified motor-vehicle accident, traffic, initial encounter
CPT/HCPCS: 70553; A9585